=== PATIENT | female | born 1960 | race African-American/Black ===

== ENCOUNTER 2019-11-17 19:11 | Emergency (ER) | payer MEDICAID ==
[~2019-11-17] VITALS: Ht 144.8 cm; Wt 54.0 kg
[2019-11-17] MEDS ORDERED: IBUPROFEN 600MG TABLET PO ONE (20:00)
[2019-11-17] MEDS ORDERED: TETANUS, DIPHTHERIA, PERTUSSIS VAC/PF 0.5ML (>7YR OLD) IM ONE (20:00)
[2019-11-17 20:22] VITALS: BP 168/98
== END 2019-11-17 20:53 | disposition home or self-care (01) ==
LOC: ER 19:11
DX: S80.812A Abrasion, left lower leg, initial encounter (principal); S81.852A Open bite, left lower leg, initial encounter; I10 Essential (primary) hypertension; W54.0XXA Bitten by dog, initial encounter; Y93.89 Activity, other specified; Y92.89 Other specified places as the place of occurrence of the external cause; Y99.8 Other external cause status
CPT/HCPCS: 90471; 90715; 99283